=== PATIENT | female | born 1960 | race African-American/Black ===

== ENCOUNTER → 2016-06-11 | Outpatient (CLI) | payer BC ==
[~2016-06-11] MED LIST: ATOR10TA; LOSARTAN PO
[2016-06-11 11:56] LABS: BASOPHILS % 0.7 % (0.0-2.0); EOSINOPHILS % 2.2 % (0.0-5.0); HEMATOCRIT. 39.2 % (36.0-48.0); HEMOGLOBIN. 13.2 g/dL (12.0-16.0); LYMPHOCYTES % 45.5 % (20.0-50.0); MEAN CORPUSCULAR HEMOGLOBIN 30.1 pg (28.0-32.0); MEAN CORPUSCULAR HGB CONC 33.7 g/dL (31.0-37.0); MEAN CORPUSCULAR VOLUME 89.3 fL (81.0-99.0); MEAN PLATELET VOLUME 9.4 fl (7.4-10.4); MONOCYTES % 7.4 % (2.0-8.0); NEUTROPHILS % 44.2 % (40.0-76.0); PLATELET 166 x1000/uL (130-400); RED BLOOD CELL COUNT 4.39 mill/uL (4.2-5.4); RED CELL DISTRIBUTION WIDTH 13.3 % (11.6-14.6); WHITE BLOOD COUNT 5.7 x1000/uL (4.5-11.0)
[2016-06-11 12:09] LABS: CLARITY URINE CLEAR (CLEAR); COLOR URINE YELLOW (YELLOW); GLUCOSE URINE NEGATIVE (NEGATIVE); KETONES URINE NEGATIVE (NEGATIVE); LEUKOCYTE ESTERASE URINE 1+ (NEGATIVE); NITRITE URINE NEGATIVE (NEGATIVE); OCCULT BLOOD URINE NEGATIVE (NEGATIVE); PH URINE 5.5 (4.5-8.0); PROTEIN URINE NEGATIVE (NEGATIVE); SPECIFIC GRAVITY URINE 1.019 (1.005-1.030); UROBILINOGEN URINE 0.2 E.U./dL (0.2-1.0)
[2016-06-11 12:32] LABS: ALANINE AMINOTRANSFERASE 33 IU/L (13-61); ALBUMIN 3.9 g/dL (3.4-5.0); ANION GAP 11; CALCIUM 9.1 mg/dL (8.5-10.1); CARBON DIOXIDE 29 mEq/L (21-32); CHLORIDE 106 mEq/L (98-107); HDL CHOLESTEROL 62 mg/dL (40-59); INDEX HEMOLYSI 1 (1-3); INDEX ICTERIC 1 (1-4); INDEX LIPEMIC 1 (1-3); IRON 79 ug/dL (50-175); LDL CHOLESTEROL 72 mg/dL (5-100); TOTAL IRON BINDING CAPACITY 349 ug/dL (250-450); TRIGLYCERIDE 127 mg/dL (0-150); UREA NITROGEN BLOOD 17 mg/dL (7-21); eGFR > 60 mL/min (>60)
[2016-06-11 12:35] LABS: SQUAMOUS EPITHELIAL CELL URINE 2+ /lpf (RARE/1+)
[2016-06-11 12:36] LABS: BACTERIA URINE 2+; MUCUS URINE TRACE /lpf (< = 2+)
[2016-06-11 12:37] LABS: RBC URINE 0-2 /hpf (0-2); WBC URINE 0-2 /hpf (0-2)
[2016-06-11 13:02] LABS: FOLIC ACID (FOLATE) SERUM 18.4 ng/mL (>5.38)
== END | disposition home or self-care (01) ==
LOC: PVL 11:33
PROVIDERS: ATTEND Internal Medicine Geriatric Medicine
DX: Z00.00 Encounter for general adult medical examination without abnormal findings (principal); N39.0 Urinary tract infection, site not specified
CPT/HCPCS: 36415; 80053; 80061; 81001; 82306; 82607; 82728; 82746; 83036; 83540; 83550; 84443; 85025; 86592; 86593; 86780; 87086

== ENCOUNTER → 2016-12-26 | Outpatient (CLI) | payer BC | END | disposition home or self-care (01) | LOC: US 07:37 | PROVIDERS: ATTEND Internal Medicine Geriatric Medicine | DX: Z12.31 Encounter for screening mammogram for malignant neoplasm of breast (principal); K76.0 Fatty (change of) liver, not elsewhere classified; K43.9 Ventral hernia without obstruction or gangrene | CPT/HCPCS: 76700; G0202 ==

== ENCOUNTER 2017-02-13 14:28 | Emergency (ER) | payer BC ==
[~2017-02-13] VITALS: Ht 175.3 cm; Wt 100.0 kg
[2017-02-13] MEDS ORDERED: SODIUM CHLORIDE 0.9% 1,000 ML IV ONE (14:59)
[2017-02-13] MEDS ORDERED: KETOROLAC 30MG/ML VIAL IV STA (14:59)
[2017-02-13] MEDS ORDERED: ONDANSETRON HCL 4MG/2ML VIAL IV ONE (15:15)
[2017-02-13 15:28] LABS: PROTHROMBIN TIME 10.7 sec (9.4-11.6)
[2017-02-13 15:29] LABS: CHLORIDE 108 mEq/L (98-107)
[2017-02-13 15:30] LABS: BASOPHILS % 0.8 % (0.0-2.0); EOSINOPHILS % 1.1 % (0.0-5.0); HEMATOCRIT. 38.1 % (36.0-48.0); HEMOGLOBIN. 12.8 g/dL (12.0-16.0); LYMPHOCYTES % 27.9 % (20.0-50.0); MEAN CORPUSCULAR HEMOGLOBIN 30.8 pg (28.0-32.0); MEAN CORPUSCULAR VOLUME 91.2 fL (81.0-99.0); MEAN PLATELET VOLUME 10.1 fl (7.4-10.4); MONOCYTES % 12.4 % (2.0-8.0); NEUTROPHILS % 57.8 % (40.0-76.0); PLATELET 130 x1000/uL (130-400); RED BLOOD CELL COUNT 4.17 mill/uL (4.2-5.4); RED CELL DISTRIBUTION WIDTH 14.4 % (11.6-14.6)
[2017-02-13 15:32] LABS: CARBON DIOXIDE 28 mEq/L (21-32)
[2017-02-13] MEDS ORDERED: IBUPROFEN 600MG TABLET PO ONE (18:00)
[2017-02-13 19:18] VITALS: BP 145/95
== END 2017-02-13 19:31 | disposition home or self-care (01) ==
LOC: ER 15:25
DX: B34.9 Viral infection, unspecified (principal); E78.00 Pure hypercholesterolemia, unspecified; I10 Essential (primary) hypertension; R79.1 Abnormal coagulation profile; Z88.0 Allergy status to penicillin; Z88.6 Allergy status to analgesic agent
CPT/HCPCS: 36415; 71045; 80053; 85025; 85610; 87804; 96360; 99285; J1885; J2405; J7030; Z7610

== ENCOUNTER → 2017-02-27 | Outpatient (CLI) | payer BC ==
[2017-02-27 07:00] LABS: CLARITY URINE CLEAR (CLEAR); COLOR URINE YELLOW (YELLOW); KETONES URINE TRACE (NEGATIVE); LEUKOCYTE ESTERASE URINE TRACE (NEGATIVE); NITRITE URINE NEGATIVE (NEGATIVE); OCCULT BLOOD URINE NEGATIVE (NEGATIVE); PH URINE 5.5 (4.5-8.0); PROTEIN URINE NEGATIVE (NEGATIVE)
[2017-02-27 07:16] LABS: BASOPHILS % 1.2 % (0.0-2.0); EOSINOPHILS % 1.2 % (0.0-5.0); HEMATOCRIT. 37.2 % (36.0-48.0); HEMOGLOBIN. 12.8 g/dL (12.0-16.0); LYMPHOCYTES % 52.5 % (20.0-50.0); MEAN CORPUSCULAR HEMOGLOBIN 30.9 pg (28.0-32.0); MEAN CORPUSCULAR VOLUME 89.6 fL (81.0-99.0); MEAN PLATELET VOLUME 9.7 fl (7.4-10.4); MONOCYTES % 8.2 % (2.0-8.0); NEUTROPHILS % 36.9 % (40.0-76.0); PLATELET 192 x1000/uL (130-400); RED BLOOD CELL COUNT 4.16 mill/uL (4.2-5.4); RED CELL DISTRIBUTION WIDTH 13.6 % (11.6-14.6)
[2017-02-27 08:40] LABS: AMYLASE 72 IU/L (25-115); CARBON DIOXIDE 32 mEq/L (21-32); CHLORIDE 101 mEq/L (98-107)
== END | disposition home or self-care (01) ==
LOC: LAB 06:38
PROVIDERS: ATTEND Internal Medicine Geriatric Medicine
DX: I10 Essential (primary) hypertension (principal); N39.0 Urinary tract infection, site not specified; R73.09 Other abnormal glucose; R10.9 Unspecified abdominal pain
CPT/HCPCS: 36415; 80053; 81001; 82150; 83036; 83690; 85025; 87086

== ENCOUNTER → 2017-03-26 | Outpatient (CLI) | payer BC ==
[~2017-03-26] MED LIST changes: +BARIUM SULFATE 450ML ORAL SUSP ONE
== END | disposition home or self-care (01) ==
LOC: CT 07:54
PROVIDERS: ATTEND Surgery
DX: K43.9 Ventral hernia without obstruction or gangrene (principal)
CPT/HCPCS: 74176

== ENCOUNTER → 2017-06-02 | Outpatient (CLI) | payer BC ==
[~2017-06-02] MED LIST changes: +ASPI-1159 PO; +ATEN50TA MT; +ATEN50TA PO; -BARIUM SULFATE 450ML ORAL SUSP ONE; +LORA2VIA33 PO; +MONT10TA21 MT; +ONDANSETRON HCL 4MG/2ML VIAL ONE
[2017-06-02 09:27] LABS: BASOPHILS % 0.8 % (0.0-2.0); EOSINOPHILS % 2.5 % (0.0-5.0); HEMATOCRIT. 38.3 % (36.0-48.0); LYMPHOCYTES % 51.2 % (20.0-50.0); MEAN CORPUSCULAR HEMOGLOBIN 30.9 pg (28.0-32.0); MEAN PLATELET VOLUME 9.1 fl (7.4-10.4); NEUTROPHILS % 37.5 % (40.0-76.0); PLATELET 173 x1000/uL (130-400); RED BLOOD CELL COUNT 4.21 mill/uL (4.2-5.4); RED CELL DISTRIBUTION WIDTH 13.4 % (11.6-14.6)
[2017-06-02 09:34] LABS: CHLORIDE 103 mEq/L (98-107)
[2017-06-02 09:51] LABS: CLARITY URINE CLEAR (CLEAR); COLOR URINE YELLOW (YELLOW); KETONES URINE NEGATIVE (NEGATIVE); LEUKOCYTE ESTERASE URINE 2+ (NEGATIVE); NITRITE URINE NEGATIVE (NEGATIVE); OCCULT BLOOD URINE NEGATIVE (NEGATIVE); PH URINE 5.5 (4.5-8.0); PROTEIN URINE NEGATIVE (NEGATIVE); SPECIFIC GRAVITY URINE 1.022 (1.005-1.030)
== END | disposition home or self-care (01) ==
LOC: RAD 08:46
PROVIDERS: ATTEND Internal Medicine Geriatric Medicine
DX: Z01.818 Encounter for other preprocedural examination (principal); J43.8 Other emphysema; I10 Essential (primary) hypertension; E78.00 Pure hypercholesterolemia, unspecified; R79.89 Other specified abnormal findings of blood chemistry
CPT/HCPCS: 36415; 71046; 80053; 81003; 83735; 85025; 87086; J2405

== ENCOUNTER 2017-06-04 08:13 | Observation (INO) | payer BC ==
[~2017-06-04] VITALS: Ht 175.3 cm; Wt 99.3 kg
[~2017-06-04 08:13] MED LIST changes: -ASPI-1159 PO; -ATEN50TA MT; -ATEN50TA PO; -LORA2VIA33 PO; -MONT10TA21 MT; -ONDANSETRON HCL 4MG/2ML VIAL ONE
[2017-06-04] MEDS ORDERED: LACTATED RINGERS 1,000 ML IV SCH (08:15)
[2017-06-04 09:09] LABS: UCG SCREEN NEGATIVE
[2017-06-04] MEDS ORDERED: ASPI-1159 PO (11:12)
[2017-06-04] MEDS ORDERED: ATEN50TA PO (11:12)
[2017-06-04] MEDS ORDERED: SKIN ADHESIVE 0.7 GM EA TOP ONE (12:54)
[2017-06-04] MEDS ORDERED: BUPIVACAINE HCL/PF 0.5% (5MG/ML) 10ML ONE ×2 (12:55→12:56)
[2017-06-04] MEDS ORDERED: LEVOFLOXACIN 500MG PREMIX 100 ML IV ONE (13:02)
[2017-06-04] MEDS ORDERED: PROPOFOL 200MG/20ML VIAL IV ONE (13:19)
[2017-06-04] MEDS ORDERED: FENTANYL CITRATE/PF 50MCG/ML 2ML VIAL ONE ×2 (13:20→15:46)
[2017-06-04] MEDS ORDERED: MIDAZOLAM HCL 2 MG/2 ML VIAL ONE (13:20)
[2017-06-04] MEDS ORDERED: EPHEDRINE SULFATE 50MG/ML VIAL ONE (13:55)
[2017-06-04] MEDS ORDERED: ONDANSETRON HCL 4MG/2ML VIAL ONE (14:31)
[2017-06-04] MEDS ORDERED: ESMOLOL HCL 10MG/ML 10ML VIAL IV ONE (15:37)
[2017-06-04] MEDS ORDERED: HYDRALAZINE 20MG/ML VIAL ONE (15:38)
[2017-06-04] MEDS: MORPHINE SULFATE 4 MG/ML CPJ (NOT FOR IM USE) IV PRN ×4 (16:26→20:53)
[2017-06-04] MEDS: ONDANSETRON HCL 4MG/2ML VIAL IV PRN ×2 (18:16→23:25)
[2017-06-04] MEDS ORDERED: DEXT 5%/0.45% NACL KCL 20MEQ/L 1,000 ML IV SCH (18:35)
[2017-06-04] MEDS ORDERED: ONDANSETRON HCL 4MG/2ML VIAL IV PRN ×2 (18:45→23:30)
[2017-06-04] MEDS ORDERED: ACETAMINOPHEN 325MG TABLET PO PRN (18:45)
[2017-06-04] MEDS ORDERED: MORPHINE SULFATE 4 MG/ML CPJ (NOT FOR IM USE) IV PRN ×2 (18:45)
[2017-06-04] MEDS ORDERED: OXYCODONE HCL/ACETAMINOPHEN 5/325MG TABLET PO NR (19:20)
[2017-06-04 22:00] VITALS: BP 117/67
[2017-06-04] MEDS ORDERED: SODIUM CHLORIDE 0.9% INJ 3ML FLUSH IVF SCH (22:00)
[2017-06-04] MEDS ORDERED: ATEN50TA MT (22:22)
[2017-06-04] MEDS ORDERED: LORA2VIA33 PO (22:23)
[2017-06-04] MEDS ORDERED: MONT10TA21 MT (22:23)
[2017-06-04 22:30] VITALS: BP 117/67
[2017-06-05 04:00] VITALS: BP 123/67
[2017-06-05] MEDS: METOCLOPRAMIDE HCL 10MG/2ML VIAL IV PRN ×2 (04:37→10:29)
[2017-06-05 08:00] VITALS: BP 120/68
[2017-06-05 08:35] VITALS: BP 120/68
== END 2017-06-05 10:50 | disposition home or self-care (01) ==
LOC: OR 08:13 → INTOOBSV 22:00 → 6EST 22:00
PROVIDERS: ADMIT Internal Medicine Geriatric Medicine; ATTEND Internal Medicine Geriatric Medicine
DX: K43.9 Ventral hernia without obstruction or gangrene (principal)
CPT/HCPCS: 49652; 72170; 81025; 96361; 96374; 96375; 96376; C1781; G0168; G0378; J0360; J1956; J2250; J2270; J2405; J2765; J3010; J3490; J7120; S2900; J2704

== ENCOUNTER → 2017-08-08 | Outpatient (CLI) | payer BC ==
[~2017-08-08] MED LIST changes: +ATEN50TA MT; +LORA2VIA33 PO; -LOSARTAN PO; +MONT10TA21 MT
== END | disposition home or self-care (01) ==
LOC: NM 08:33
PROVIDERS: ATTEND Internal Medicine Geriatric Medicine
DX: I51.7 Cardiomegaly (principal); I50.9 Heart failure, unspecified; I31.3 Pericardial effusion (noninflammatory); R23.8 Other skin changes
CPT/HCPCS: 71046; 78582; 93306; A9540; A9558

== ENCOUNTER → 2018-03-17 | Outpatient (CLI) | payer BC ==
[~2018-03-17] MED LIST changes: -LORA2VIA33 PO; +LORA2VIA34 PO
[2018-03-17 11:13] LABS: CLARITY URINE CLEAR (CLEAR); COLOR URINE YELLOW (YELLOW); KETONES URINE NEGATIVE (NEGATIVE); LEUKOCYTE ESTERASE URINE 2+ (NEGATIVE); NITRITE URINE NEGATIVE (NEGATIVE); OCCULT BLOOD URINE NEGATIVE (NEGATIVE); PH URINE 5.5 (4.5-8.0); PROTEIN URINE NEGATIVE (NEGATIVE); SPECIFIC GRAVITY URINE 1.016 (1.005-1.030); UROBILINOGEN URINE 0.2 E.U./dL (0.2-1.0)
[2018-03-17 11:21] LABS: BASOPHILS % 0.8 % (0.0-2.0); EOSINOPHILS % 2.2 % (0.0-5.0); HEMATOCRIT. 40.9 % (36.0-48.0); HEMOGLOBIN. 13.8 g/dL (12.0-16.0); LYMPHOCYTES % 46.4 % (20.0-50.0); MEAN CORPUSCULAR HEMOGLOBIN 30.9 pg (28.0-32.0); MEAN CORPUSCULAR VOLUME 91.6 fL (81.0-99.0); MEAN PLATELET VOLUME 9.4 fl (7.4-10.4); MONOCYTES % 8.4 % (2.0-8.0); NEUTROPHILS % 42.2 % (40.0-76.0); PLATELET 171 x1000/uL (130-400); RED BLOOD CELL COUNT 4.47 mill/uL (4.2-5.4); RED CELL DISTRIBUTION WIDTH 13.8 % (11.6-14.6)
[2018-03-17 11:26] LABS: CHLORIDE 102 mEq/L (98-107)
[2018-03-17 11:33] LABS: LDL CHOLESTEROL 107 mg/dL (5-100); TOTAL IRON BINDING CAPACITY 355 ug/dL (250-450)
[2018-03-17 11:36] LABS: HDL CHOLESTEROL 63 mg/dL (40-59)
[2018-03-18 10:10] LABS: *CREATININE RANDOM URINE 104.9 mg/dL (Not Estab.); MICROALBUMIN RANDOM URINE <3.0 ug/mL (Not Estab.)
== END | disposition home or self-care (01) ==
LOC: LAB 10:20
PROVIDERS: ATTEND Internal Medicine Geriatric Medicine
DX: I10 Essential (primary) hypertension (principal); N39.0 Urinary tract infection, site not specified; E78.5 Hyperlipidemia, unspecified; E08.59 Diabetes mellitus due to underlying condition with other circulatory complications
CPT/HCPCS: 36415; 80061; 82043; 82306; 82570; 82728; 83036; 83540; 83550; 84443; 86592; 86593; 86780

== ENCOUNTER → 2018-03-20 | Outpatient (CLI) | payer BC | END | disposition home or self-care (01) | LOC: US 07:31 | PROVIDERS: ATTEND Internal Medicine Geriatric Medicine | DX: D25.9 Leiomyoma of uterus, unspecified (principal); M25.511 Pain in right shoulder | CPT/HCPCS: 73030; 76830; 76856 ==

== ENCOUNTER → 2018-03-26 | Outpatient (CLI) | payer BC | END | disposition home or self-care (01) | LOC: LAB 17:09 | PROVIDERS: ATTEND Internal Medicine Geriatric Medicine | DX: R76.8 Other specified abnormal immunological findings in serum (principal) | CPT/HCPCS: 36415; 84132; 86780 ==

== ENCOUNTER → 2018-04-02 | Outpatient (CLI) | payer BC ==
[2018-04-02 11:53] LABS: CHLORIDE 102 mEq/L (98-107)
[2018-04-02 12:00] LABS: PHOSPHORUS 3.6 mg/dL (2.5-4.9)
[2018-04-02 15:53] LABS: HEPATITIS B SURFACE ANTIGEN NEGATIVE
[2018-04-02 16:19] LABS: HEPATITIS A AB IGM NEGATIVE (NEGATIVE)
[2018-04-03 14:17] LABS: HIV SCREEN 4G Non Reactive (Non Reactive)
== END | disposition home or self-care (01) ==
LOC: LAB 11:08
PROVIDERS: ATTEND Internal Medicine Geriatric Medicine
DX: E87.6 Hypokalemia (principal); R76.8 Other specified abnormal immunological findings in serum
CPT/HCPCS: 36415; 80048; 83735; 84100; 84133; 86592; 86593; 86705; 86709; 86780; 86803; 87340; 87389

== ENCOUNTER → 2018-05-17 | Outpatient (CLI) | payer BC ==
[2018-05-17 10:24] LABS: CHLORIDE 104 mEq/L (98-107)
== END | disposition home or self-care (01) ==
LOC: LAB 09:46
PROVIDERS: ATTEND Internal Medicine Geriatric Medicine
DX: E87.6 Hypokalemia (principal)
CPT/HCPCS: 36415; 80048; 83036; 86592; 86593; 86780

== ENCOUNTER → 2018-08-21 | Outpatient (CLI) | payer BC ==
[2018-08-21 08:01] LABS: CHLORIDE 105 mEq/L (98-107)
[2018-08-21 08:09] LABS: LDL CHOLESTEROL 91 mg/dL (5-100)
[2018-08-21 08:10] LABS: HDL CHOLESTEROL 54 mg/dL (40-59)
== END | disposition home or self-care (01) ==
LOC: LAB 07:07
PROVIDERS: ATTEND Internal Medicine Geriatric Medicine
DX: I10 Essential (primary) hypertension (principal); E87.6 Hypokalemia
CPT/HCPCS: 36415; 80061; 83036; 83735; 86592; 86593; 86780